=== PATIENT | female | born 1995 | race Caucasian/White ===

== ENCOUNTER → 2017-05-01 | Outpatient (CLI) | payer BC, OTHER ==
--- NOTE | 2017-05-01 15:16 | XR ---
EXAMINATION TYPE: XR chest 2V DATE OF EXAM: 05/01/2017 COMPARISON: 12/01/2012 TECHNIQUE: PA and lateral views submitted. HISTORY: Cough FINDINGS: The lungs are clear and there is no pneumothorax, pleural effusion, or focal pneumonia. IMPRESSION: 1. No acute process.
== END | disposition home or self-care (01) ==
LOC: RADXRMAIN 11:42
PROVIDERS: ATTEND Otolaryngology
DX: R05 Cough (principal)
CPT/HCPCS: 71020

== ENCOUNTER → 2017-05-08 | Outpatient (CLI) | payer BC, OTHER | LOC: CPPFTMAIN 13:32 | PROVIDERS: ATTEND Otolaryngology | DX: R05 Cough (principal); J45.909 Unspecified asthma, uncomplicated | CPT/HCPCS: 94060; 94726; 94729 ==

== ENCOUNTER → 2017-05-11 | Outpatient (CLI) | payer BC, OTHER | END | disposition home or self-care (01) | LOC: PTMAIN 08:57 | PROVIDERS: ATTEND Otolaryngology | DX: J45.909 Unspecified asthma, uncomplicated (principal); R05 Cough ==

== ENCOUNTER → 2017-07-09 | Outpatient (CLI) | payer BC, OTHER | END | disposition home or self-care (01) | LOC: LABWHC1 14:30 | PROVIDERS: ATTEND Internal Medicine Endocrinology, Diabetes & Metabolism | DX: E03.9 Hypothyroidism, unspecified (principal) | CPT/HCPCS: 36415; 84439; 84443 ==

== ENCOUNTER → 2018-01-29 | Outpatient (CLI) | payer BC, OTHER ==
[2018-01-29 15:20] LABS: T4, Free (Free Thyroxine) 0.96 ng/dL (0.78-2.19)
== END | disposition home or self-care (01) ==
LOC: LABWHC1 13:50
PROVIDERS: ATTEND Internal Medicine Endocrinology, Diabetes & Metabolism
DX: E03.8 Other specified hypothyroidism (principal)
CPT/HCPCS: 36415; 84439; 84443

== ENCOUNTER 2018-02-18 18:21 | Emergency (ER) | payer BC, OTHER ==
[2018-02-18 18:26] VITALS: BP 138/88; PULSE 69; RESP 18; TEMP 98.2
[2018-02-18] MEDS ORDERED: DOXYCYCLINE 50 MG CAP PO STA (19:12)
--- NOTE | 2018-02-18 19:31 | ED ---
General Adult HPI - General Chief complaint: Skin/Abscess/Foreign Body Stated complaint: BITE ON RT ARM and headache Time Seen by Provider: 02/18/18 18:29 Source: patient, RN notes reviewed Mode of arrival: ambulatory Limitations: no limitations - History of Present Illness Initial comments: This is a 23-year-old female with past medical history of asthma who presents today for a rash to right upper arm 4 days. She states 4 days ago she was in the [place] around the [place] area when she got home she also looked like mosquito bite, that was itching. Denies any other symptoms. 3 days later she noticed increasing redness around the bite on her right upper arm, and presented to an urgent care. There she was examined and they stated that they mosquito bite she was given hydrocortisone cream for itching. She was told to come to the ER if she has any new symptoms. Today she presents for a rash unchanged from the day before but this morning she woke up with a mild headache. She denies the same symptoms including seeing a tick on her arm , traveling to the [facility] for the [facility], photophobia, fever or chills, nuchal rigidity, warmth or drainage from the lesion, previous MRSA infection, arthralgias, dysarthria, aphasia, muscle weakness, gait ataxia, or confusion. Her presentation patient with headache and rash to the right upper arm. Patient denies any recent fever, chills, shortness of breath, chest pain, back pain, abdominal pain, nausea or vomiting, numbness or tingling, dysuria or hematuria, constipation or diarrhea, or visual changes, or any other complaints. Upon presentation to the emergency Department patient was afebrile and vital signs within normal limits. - Related Data Home Medications Medication Instructions Recorded Confirmed Levothyroxine Sodium [Synthroid] 175 mcg PO DAILY 10/22/14 02/18/18 Duc-Whlo-Dkfvm Acid 1 tab PO DAILY 01/22/16 02/18/18 [-U Capsule (formulary)] FLUoxetine HCL [PROzac] 20 mg PO DAILY 02/18/18 02/18/18 buPROPion XL [Wellbutrin Xl] 150 mg PO DAILY 02/18/18 02/18/18 Allergies Allergy/AdvReac Type Severity Reaction Status Date / Time No Known Allergies Allergy Verified 02/18/18 18:30 Review of Systems ROS Statement: Those systems with pertinent positive or pertinent negative responses have been documented in the HPI. ROS Other: All systems not noted in ROS Statement are negative. Constitutional: Denies: fever, chills, weakness, night sweats Eyes: Denies: vision change Respiratory: Denies: dyspnea Cardiovascular: Denies: chest pain Gastrointestinal: Denies: abdominal pain, nausea, vomiting, diarrhea, constipation Genitourinary: Denies: urgency, dysuria Skin: Reports: as per HPI, rash, pruritus Neurological: Reports: as per HPI, headache. Denies: weakness, numbness, paresthesias, confusion Past Medical History Past Medical History: Asthma, Thyroid Disorder Additional Past Medical History / Comment(s): Obstetric history: she has had 2 spontaneous abortions. This is her third and she has had care with Dr Galeano since 8 weeks. A+, abs neg, Rub Imm, RPR NR, Hep B neg, GBS neg. History of Any Multi-Drug Resistant Organisms: None Reported Past Surgical History: Adenoidectomy, Tonsillectomy Past Anesthesia/Blood Transfusion Reactions: No Reported Reaction Past Psychological History: Anxiety, Depression Smoking Status: Never smoker Past Alcohol Use History: None Reported Past Drug Use History: None Reported - Past Family History Mother Family Medical History: Asthma, Thyroid Disorder General Exam - General Exam Comments Initial Comments: General: The patient is awake and alert, in no distress, and does not appear acutely ill. Eye: Pupils are equal, round and reactive to light, extra-ocular movements are intact. No nystagmus. There is normal conjunctiva bilaterally. No signs of icterus. Skin: Skin is warm and dry. There is a 1 cm raised erythematous raised lesion, with blanchable 8cm circular erythematous area surrounding the lesion, with a slight clearing to the lower portion but it is not circumferential. there are area of excoriation most likely due to pruritus. No active drainage from the raised lesion or warmth. Where the skin is touch it becomes erythematous upon physical examination. Ears, nose, mouth and throat: There are moist mucous membranes and no oral lesions. Neck: The neck is supple, there is no tenderness or JVD. No evidence of nuchal rigidty, (-) Brudzinski's (-) Kernig. No palpable lymphadenopathy. Cardiovascular: There is a regular rate and rhythm. No murmur, rub or gallop is appreciated. Respiratory: Lungs are clear to auscultation, respirations are non-labored, breath sounds are equal. No wheezes, stridor, rales, or rhonchi. Musculoskeletal: Normal ROM, no tenderness. Strength 5/5. Sensation intact. Pulses equal bilaterally 2+. Neurological: A&O x 3. CN II-XII intact, patient able to heel, toe walk and accordingly manner without gait abnormalities. Negative Romberg. No pronator drift. Coordination intact to [id number] [id number]. Able to perform coordinated rapid alternating movements. Speech is normal. +5 out of 5 muscle strength of the upper extremities and lower extremities equal bilaterally. No signs hemineglect or inattention. Patient memory intact to immediate, intermediate and longterm. Able to identify a pen. No signs dyspraxia. Graphesthesia. +2 deep tendon reflexes of the patellar, Achilles , brachioradialis and triceps. Sensation intact of the upper extremity and lower extremities equal bilaterally. She is able to identify extinction. Psychiatric: Cooperative, appropriate mood & affect, normal judgment. . Limitations: no limitations Course Vital Signs 02/18/18 18:21 Temperature 98.2 F Pulse Rate 69 Respiratory 18 Rate Blood Pressure 138/88 O2 Sat by Pulse 99 Oximetry Medical Decision Making - Medical Decision Making This is a 23-year-old female with past medical history of asthma who presents today for a rash to right upper arm 4 days. She states 4 days ago she was in the [place] around the [facility] when she got home she also looked like mosquito bite, that was itching. Denies any other symptoms. 3 days later she noticed increasing redness around the bite on her right upper arm, and presented to an urgent care. There she was examined and they stated that they mosquito bite she was given hydrocortisone cream for itching. She was told to come to the ER if she has any new symptoms. Today she presents for a rash unchanged from the day before but this morning she woke up with a mild headache which she had looked up Lyme disease symptoms and wanted to be sure. She denies seeing a tick on her arm , traveling to the [facility] for the [facility], photophobia, fever or chills, nuchal rigidity, warmth or drainage from the lesion, previous MRSA infection, arthralgias, dysarthria, aphasia, muscle weakness, gait ataxia, or confusion. Upon presentation to the emergency department she is afebrile vital signs within normal limits . A physical examination reveals skin is warm and dry. There is a 1 cm raised erythematous raised lesion, with blanchable 8cm circular erythematous area surrounding the lesion, with a slight clearing to the lower portion but it is not circumferential. there are area of excoriation most likely due to pruritus. No active drainage from the raised lesion or warmth. Where the skin is touch it becomes erythematous upon physical examination. Thorough neurological exam unremarkable. Upreg (-). Patient was given 200 mg doxycycline for Lyme disease prophylaxis instead of Lyme disease treatment due to patient never seeing an engorged or live tick on her arm and no being in an endemic area the likelihood of trasmissino is unlikely. However, pt was educated on the signs and symptoms of Lyme disease and encourged to undergo further testing with her PCP if symptoms continue. In addition to the abx she was given 500mg Tylenol for pain management which pt states helped a lot, she stated her headache went away and upon a third evaluation she was laughing in her room conversing with her boyfriend. Pt was seen by Dr Jaramillo in person and examined and the case was discussed in detail. Pt is follow-up with PCP in 1-2 days and to return to the emergency department if symptoms worsen, persist or change. - Lab Data Lab Results 02/18/18 Range/Units 19:26 Urine HCG, Qual Not Detected (Not Detectd) Disposition Clinical Impression: Bug bite of face without infection Disposition: HOME SELF-CARE Condition: Good Instructions: Lyme Disease (ED) Additional Instructions: Please follow-up with family doctor in the next 2 days of symptoms have not improved. Please return to emergency room if the symptoms increase or worsen or for any other concerns. Is patient prescribed a controlled substance at d/c from ED?: No Referrals: Perez Cason DO [Primary Care Provider] - 1-2 days Time of Disposition: 20:08
[2018-02-18] MEDS ORDERED: ACETAMINOPHEN TAB 500 MG TAB PO STA (19:32)
== END 2018-02-18 20:15 | disposition home or self-care (01) ==
LOC: EC 18:21
DX: S00.86XD Insect bite (nonvenomous) of other part of head, subsequent encounter (principal); S40.861D Insect bite (nonvenomous) of right upper arm, subsequent encounter; R51 Headache; E07.9 Disorder of thyroid, unspecified; F41.9 Anxiety disorder, unspecified; F32.9 Major depressive disorder, single episode, unspecified; Z79.899 Other long term (current) drug therapy; W57.XXXD Bitten or stung by nonvenomous insect and other nonvenomous arthropods, subsequent encounter
CPT/HCPCS: 81025; 99284

== ENCOUNTER 2018-05-12 12:08 | Emergency (ER) | payer BC, OTHER ==
[2018-05-12 12:14] VITALS: BP 141/90; PULSE 80; RESP 18; TEMP 98.3
[2018-05-12] MEDS ORDERED: SODIUM CHLORIDE 0.9% 1,000 ML IV STA (12:15)
[2018-05-12 12:50] LABS: Appearance,Urine Clear (Clear); Bilirubin,Urine Negative (Negative); Blood,Urine Negative (Negative); Color,Urine Yellow; Glucose,Urine (UA) Negative (Negative); Ketones,Urine Negative (Negative); Leukocyte Esterase,Urine Trace (Negative); Mucus,Urine Rare /hpf; Nitrite,Urine Negative (Negative); Protein,Urine Negative (Negative); RBC,Urine 3 /hpf (0-5); Specific Gravity,Urine 1.018 (1.001-1.035); Squamous Epithelial Cell,Urine 2 /hpf (0-4); Urobilinogen,Urine <2.0 mg/dL (<2.0); WBC,Urine 1 /hpf (0-5)
[2018-05-12] MEDS ORDERED: ACETAMINOPHEN IV (For NPO) 1,000 MG in EMPTY BAG 1 BAG IVPB ONE (13:33)
[2018-05-12] MEDS ORDERED: KETOROLAC 30 MG/ML 1 ML VIAL IVP STA (13:34)
[2018-05-12] MEDS ORDERED: METOCLOPRAMIDE 5 MG/ML 2 ML VIAL IVP STA (13:35)
--- NOTE | 2018-05-12 15:05 | ED ---
General Adult HPI - General Chief complaint: Headache Stated complaint: Migraine/ENT Source: patient, family Mode of arrival: ambulatory Limitations: no limitations - History of Present Illness Initial comments: Dictation was produced using [employer] dictation software. please excuse any grammatical, word or spelling errors. Chief Complaint: 23-year-old female with a CV past medical history presents with headache. History of Present Illness: Patient presents with headache. She recently completed course of antibiotics for sinusitis. She's been having headache for several days now. Patient denies any neurologic deficit. She states that her headache is throbbing in nature. Denies any changes in vision. Patient has any constitutional symptoms. Patient states she's had headaches similar to this in the past however not very frequent. Denies . The ROS documented in this emergency department record has been reviewed and confirmed by me. Those systems with pertinent positive or negative responses have been documented in the HPI. All other systems are other negative and/or noncontributory. - Related Data Home Medications Medication Instructions Recorded Confirmed Levothyroxine Sodium [Synthroid] 175 mcg PO DAILY 10/22/14 02/18/18 Aeg-Ynpc-Nygts Acid 1 tab PO DAILY 01/22/16 02/18/18 [-U Capsule (formulary)] FLUoxetine HCL [PROzac] 20 mg PO DAILY 02/18/18 02/18/18 buPROPion XL [Wellbutrin Xl] 150 mg PO DAILY 02/18/18 02/18/18 Previous Rx's Medication Instructions Recorded Naproxen [Naprosyn] 500 mg PO Q12HR PRN #20 tab 05/12/18 Oxymetazoline 0.05% Nasl [place] 2 spray EA NOSTRIL BID 3 Days #1 05/12/18 [Afrin 0.05% Nasal [place]] bottle Allergies Allergy/AdvReac Type Severity Reaction Status Date / Time No Known Allergies Allergy Verified 05/12/18 12:14 Review of Systems ROS Statement: Those systems with pertinent positive or pertinent negative responses have been documented in the HPI. ROS Other: All systems not noted in ROS Statement are negative. Past Medical History Past Medical History: Asthma, Thyroid Disorder Additional Past Medical History / Comment(s): Obstetric history: she has had 2 spontaneous abortions. This is her third and she has had care with Dr Galeano since 8 weeks. A+, abs neg, Rub Imm, RPR NR, Hep B neg, GBS neg. History of Any Multi-Drug Resistant Organisms: None Reported Past Surgical History: Adenoidectomy, Tonsillectomy Past Anesthesia/Blood Transfusion Reactions: No Reported Reaction Past Psychological History: Anxiety, Depression Smoking Status: Never smoker Past Alcohol Use History: None Reported Past Drug Use History: None Reported - Past Family History Mother Family Medical History: Asthma, Thyroid Disorder General Exam - General Exam Comments Initial Comments: PHYSICAL EXAM: General Impression: Alert and oriented x3, not in acute distress HEENT: Normocephalic atraumatic, extra-ocular movements intact, pupils equal and reactive to light bilaterally, mucous membranes moist. Cardiovascular: Heart regular rate and rhythm, S1&S2 audible, no murmurs, rubs or gallops Chest: Lungs clear to auscultation bilaterally, no rhonchi, no wheeze, no rales Abdomen: Bowel sounds present, abdomen soft, non-tender, non-distended, no organomegaly Musculoskeletal: Pulses present and equal in all extremities, no peripheral edema Motor: Power 5/5 bilaterally, no focal deficits noted Neurological: CN II-XII grossly intact, no focal motor or sensory deficits noted Skin: Intact with no visualized rashes Psych: Normal affect and mood Limitations: no limitations Course Vital Signs 05/12/18 12:11 Temperature 98.3 F Pulse Rate 80 Respiratory 18 Rate Blood Pressure 141/90 O2 Sat by Pulse 98 Oximetry Medical Decision Making - Medical Decision Making ED course: 23-year-old female with chief complaint of headache. Vital signs upon arrival are within acceptable limits. She given headache cocktail. Urinalysis is obtained showing no acute process. Beta hCG is negative. Patient reevaluated after headache cocktail with improvement of symptoms. Patient prescribed Afrin spray and Naprosyn for headaches. She is told to follow-up with a primary care physician upon discharge for further management of symptoms. Patient understandable agreeable to plan. - Lab Data Lab Results 05/12/18 05/12/18 Range/Units 12:40 12:40 Urine Color Yellow Urine Appearance Clear (Clear) Urine pH 7.0 (5.0-8.0) Ur Specific [place] 1.018 (1.001-1.035) Urine Protein Negative (Negative) Urine Glucose (UA) Negative (Negative) Urine Ketones Negative (Negative) Urine Blood Negative (Negative) Urine Nitrite Negative (Negative) Urine Bilirubin Negative (Negative) Urine Urobilinogen <2.0 (<2.0) mg/dL Ur Leukocyte Esterase Trace H (Negative) Urine RBC 3 (0-5) /hpf Urine WBC 1 (0-5) /hpf Ur Squamous Epith Cells 2 (0-4) /hpf Urine Mucus Rare H (None) /hpf Urine HCG, Qual Not Detected (Not Detectd) Disposition Clinical Impression: Headache Disposition: HOME SELF-CARE Condition: Good Instructions: Acute Headache (ED) Prescriptions: Naproxen [Naprosyn] 500 mg PO Q12HR PRN #20 tab PRN Reason: Pain Oxymetazoline 0.05% Nasl [place] [Afrin 0.05% Nasal [place]] 2 spray EA NOSTRIL BID 3 Days #1 bottle Is patient prescribed a controlled substance at d/c from ED?: No Referrals: Perez Cason DO [Primary Care Provider] - 1-2 days Time of Disposition: 15:04
== END 2018-05-12 15:18 | disposition home or self-care (01) ==
LOC: EC 12:08
DX: R51 Headache (principal); E07.9 Disorder of thyroid, unspecified; F32.9 Major depressive disorder, single episode, unspecified; F41.9 Anxiety disorder, unspecified; Z79.899 Other long term (current) drug therapy
CPT/HCPCS: 81001; 81025; 87086; 99284; 96374; 96375 ×2; 96361; J2765; J1885; J0131

== ENCOUNTER 2018-06-21 23:24 | Emergency (ER) | payer OTHER ==
--- NOTE | 2018-06-22 00:03 | ED ---
Psych HPI - General Chief Complaint: Psychiatric Symptoms Stated Complaint: suicidal Time Seen by Provider: 06/21/18 23:36 Source: patient Mode of arrival: ambulatory - History of Present Illness Initial Comments: This patient is a 23-year-old woman with history of depression, who presents to be evaluated for suicidal ideation. The patient states that for the past 4 days or so she has been feeling more depressed than usual and she saw her primary physician. Patient was started on Zoloft, and has been taking this but states that her mood has worsened over the past approximately 2 days and she has been having suicidal ideation. She denies having any associated hallucinations. MD Complaint: suicidal ideation, feels depressed Onset/Timin -: days(s) Associated Psychiatric Symptoms: depression, suicidal ideation History of same: No Quality: changing over time Improves With: none Worsens With: none Context: new medication(s) Associated Symptoms: denies other symptoms - Related Data Home Medications Medication Instructions Recorded Confirmed Levothyroxine Sodium [Synthroid] 137 mcg PO DAILY 10/22/14 02/18/18 FLUoxetine HCL [PROzac] 40 mg PO DAILY 02/18/18 02/18/18 Previous Rx's Medication Instructions Recorded Naproxen [Naprosyn] 500 mg PO Q12HR PRN #20 tab 05/12/18 Oxymetazoline 0.05% Nasl [place] 2 spray EA NOSTRIL BID 3 Days #1 05/12/18 [Afrin 0.05% Nasal [place]] bottle Allergies Allergy/AdvReac Type Severity Reaction Status Date / Time No Known Allergies Allergy Verified 05/12/18 12:14 Review of Systems ROS Statement: Those systems with pertinent positive or pertinent negative responses have been documented in the HPI. ROS Other: All systems not noted in ROS Statement are negative. Constitutional: Denies: fever, chills Respiratory: Denies: cough, dyspnea Cardiovascular: Denies: chest pain Gastrointestinal: Denies: abdominal pain, vomiting Neurological: Denies: headache, weakness, numbness Psychiatric: Reports: anxiety, depression, suicidal thoughts. Denies: auditory hallucinations, visual hallucinations, homicidal thoughts Past Medical History Past Medical History: Asthma, Thyroid Disorder Additional Past Medical History / Comment(s): Obstetric history: she has had 2 spontaneous abortions. This is her third and she has had care with Dr Galeano since 8 weeks. A+, abs neg, Rub Imm, RPR NR, Hep B neg, GBS neg. History of Any Multi-Drug Resistant Organisms: None Reported Past Surgical History: Adenoidectomy, Tonsillectomy Past Anesthesia/Blood Transfusion Reactions: No Reported Reaction Past Psychological History: Anxiety, Depression Smoking Status: Never smoker Past Alcohol Use History: None Reported Past Drug Use History: None Reported - Past Family History Mother Family Medical History: Asthma, Thyroid Disorder General Exam Limitations: no limitations General appearance: alert, in no apparent distress Head exam: Present: normocephalic ENT exam: Present: normal oropharynx Respiratory exam: Present: normal lung sounds bilaterally. Absent: respiratory distress, wheezes, rales, rhonchi, stridor Cardiovascular Exam: Present: regular rate, normal rhythm, normal heart sounds. Absent: systolic murmur, diastolic murmur, rubs, gallop GI/Abdominal exam: Present: soft. Absent: distended, tenderness, guarding, rebound, organomegaly, mass Extremities exam: Present: normal inspection, normal capillary refill Neurological exam: Present: alert Psychiatric exam: Present: depressed, suicidal ideation. Absent: agitated, anxious, flat affect, manic, homicidal ideation Skin exam: Present: warm, dry, intact, normal color. Absent: rash Course Vital Signs 06/21/18 23:29 Temperature 98.0 F Pulse Rate 67 Respiratory 20 Rate Blood Pressure 119/75 O2 Sat by Pulse 100 Oximetry Medical Decision Making - Medical Decision Making On reevaluation, patient is feeling somewhat better. A behavioral health has seen the patient and has established follow-up plan for [facility]. The patient's partner is supportive and they believe that she'll be safe going home, she does contract for safety. They will return if the patient's mood worsens or if any new symptoms develop. - Lab Data Lab Results 06/22/18 06/22/18 Range/Units 00:00 00:00 Urine Color Dark Yellow Urine Appearance Cloudy H (Clear) Urine pH 5.5 (5.0-8.0) Ur Specific [place] 1.030 (1.001-1.035) Urine Protein Trace H (Negative) Urine Glucose (UA) Negative (Negative) Urine Ketones Negative (Negative) Urine Blood Negative (Negative) Urine Nitrite Negative (Negative) Urine Bilirubin Negative (Negative) Urine Urobilinogen <2.0 (<2.0) mg/dL Ur Leukocyte Esterase Moderate H (Negative) Urine RBC 3 (0-5) /hpf Urine WBC 5 (0-5) /hpf Ur Squamous Epith Cells 14 H (0-4) /hpf Urine Bacteria Rare H (None) /hpf Urine Mucus Few H (None) /hpf Urine HCG, Qual Not Detected (Not Detectd) Urine Opiates Screen Not Detected (NotDetected) Ur Oxycodone Screen Not Detected (NotDetected) Urine Methadone Screen Not Detected (NotDetected) Ur Propoxyphene Screen Not Detected (NotDetected) Ur Barbiturates Screen Not Detected (NotDetected) U Tricyclic Antidepress Not Detected (NotDetected) Ur Phencyclidine Scrn Not Detected (NotDetected) Ur Amphetamines Screen Not Detected (NotDetected) U Methamphetamines Scrn Not Detected (NotDetected) U Benzodiazepines Scrn Not Detected (NotDetected) Urine Cocaine Screen Not Detected (NotDetected) U Marijuana (THC) Screen Not Detected (NotDetected) Disposition Clinical Impression: Mood disorder Disposition: HOME SELF-CARE Condition: Good Instructions: Mood Disorders (ED) Is patient prescribed a controlled substance at d/c from ED?: No Referrals: Perez Cason DO [Primary Care Provider] - 1-2 days
[2018-06-22 00:31] LABS: Appearance,Urine Cloudy (Clear); Bacteria,Urine Rare /hpf; Bilirubin,Urine Negative (Negative); Blood,Urine Negative (Negative); Color,Urine Dark Yellow; Glucose,Urine (UA) Negative (Negative); Ketones,Urine Negative (Negative); Leukocyte Esterase,Urine Moderate (Negative); Mucus,Urine Few /hpf; Nitrite,Urine Negative (Negative); PH, Urine 5.5 (5.0-8.0); Protein,Urine Trace (Negative); RBC,Urine 3 /hpf (0-5); Squamous Epithelial Cell,Urine 14 /hpf (0-4); Urobilinogen,Urine <2.0 mg/dL (<2.0); WBC,Urine 5 /hpf (0-5)
[2018-06-22 00:38] LABS: Amphetamine Screen,Urine Not Detected (NotDetected); Barbiturate Screen,Urine Not Detected (NotDetected); Benzodiazepines Screen,Urine Not Detected (NotDetected); Cocaine Screen,Urine Not Detected (NotDetected); Methadone Screen, Urine Not Detected (NotDetected); Opiate Screen,Urine Not Detected (NotDetected); Oxycodone Screen, Urine Not Detected (NotDetected); Phencyclidine Screen,Urine Not Detected (NotDetected); Tricyclic Antidepressant,Urine Not Detected (NotDetected); Urn Cannabinoid Scrn Not Detected (NotDetected)
[2018-06-22 02:23] VITALS: BP 117/75; PULSE 59; RESP 16; TEMP 97.5
--- NOTE | 2018-06-22 02:27 | CDI ---
Documentation Clarification OP Dear Reginaldo MARQUEZ MD Please do addendum to ED report for clinical impression. Thank you, Marixa [employer] Operator If you have any question, Please contact bookkeeping manager at [phone] [facility]
== END 2018-06-22 02:28 | disposition home or self-care (01) ==
LOC: EC 23:24
DX: F39 Unspecified mood [affective] disorder (principal); F41.9 Anxiety disorder, unspecified; F32.9 Major depressive disorder, single episode, unspecified; Z79.899 Other long term (current) drug therapy
CPT/HCPCS: 80306; 81001; 81025; 82075; 99284

== ENCOUNTER → 2018-06-26 | Outpatient (CLI) | payer OTHER ==
--- NOTE | 2018-06-26 14:05 | US ---
EXAMINATION TYPE: US pelvic complete DATE OF EXAM: 06/26/2018 COMPARISON: US 2014 CLINICAL HISTORY: [id number] Unspesified ovarian cyst of left side. History of ovarian cysts, 3, para 1, miscarriage 2 TECHNIQUE: . Transabdominal sonographic images of the pelvis were acquired. Date of LMP: 2 weeks ago EXAM MEASUREMENTS: Uterus: 8.2 x 4.4 x 5.2 cm Endometrial Stripe: 0.8 cm Right Ovary: 2.7 x 1.9 x 1.8 cm Left Ovary: 2.6 x 2.1 x 2.7 cm 1. Uterus: anteverted, wnl 2. Endometrium: wnl 3. Right Ovary: wnl 4. Left Ovary: wnl 5. Bilateral Adnexa: wnl 6. Posterior cul-de-sac: wnl IMPRESSION: No distinct abnormality appreciated.
== END | disposition home or self-care (01) ==
LOC: RADUSWWP 13:32
PROVIDERS: ATTEND Family Medicine
DX: N83.202 Unspecified ovarian cyst, left side (principal); N94.12 Deep dyspareunia
CPT/HCPCS: 76856

== ENCOUNTER → 2018-07-15 | Outpatient (CLI) | payer BC, OTHER | END | disposition home or self-care (01) | LOC: LABWHC1 14:23 | PROVIDERS: ATTEND Internal Medicine Endocrinology, Diabetes & Metabolism | DX: E03.8 Other specified hypothyroidism (principal) | CPT/HCPCS: 36415; 84443 ==

== ENCOUNTER → 2018-08-05 | Outpatient (CLI) | payer BC, OTHER ==
--- NOTE | 2018-08-05 15:43 | US ---
EXAMINATION TYPE: Ultrasound OB <= 14 week fetus DATE OF EXAM: 08/05/2018 COMPARISON: Ultrasound pelvis 06/26/2018 CLINICAL HISTORY: 23-year-old female [id number] Confirm Dates. EXAM PERFORMED: Transabdominal (TA) FINDINGS: EXAM MEASUREMENTS: GESTATIONAL AGE / DATING Physician Established: Not yet established Dates by LMP: (7 weeks/6 days) EDC: 03/18/2019 Dates by First Scan: No previous this is first scan Dates by Current Scan for: (8 weeks/3 days) EDC: 03/14/2019 MATERNAL ANATOMY Uterus: 10.0 x 6.5 x 7.4 cm Right Ovary: 1.8 x 1.3 x 1.0 cm Left Ovary: 2.7 x 2.8 x 2.0 cm Post CDS / Adnexa: wnl Presence of free fluid: No Presence of corpus luteal cyst: No Presence of subchorionic bleed: No GESTATION / SURVEY CRL: 1.9 cm (8 weeks/3 days) Yolk Sac (normal less than 6mm): 3 mm Heart Rate: 152 bpm Rhythm: Normal IUP: Viable IUP Date of LMP: 06/11/2018 Beta HcG (if available): Not available at this time Retirement Plan Counselor notes: Viable IUP with an TED of 03/14/2019 by this exam. IMPRESSION: 1. Single live intrauterine with estimated gestational age of 7 weeks 6 days by LMP. Curren t ultrasound biometry is larger by 4 days (8 weeks 3 days). 2. Complete survey recommended at 18-20 weeks.
== END ==
LOC: RADUSWWP 14:53
PROVIDERS: ATTEND Obstetrics & Gynecology
DX: Z36.89 Encounter for other specified antenatal screening (principal); Z3A.08 8 weeks gestation of pregnancy
CPT/HCPCS: 76801

== ENCOUNTER 2018-08-06 19:37 | Emergency (ER) | payer BC, OTHER ==
[2018-08-06] MEDS ORDERED: METOCLOPRAMIDE 5 MG/ML 2 ML VIAL IVP STA (20:08)
[2018-08-06] MEDS ORDERED: SODIUM CHLORIDE 0.9% 1,000 ML IV STA ×2 (20:08)
[2018-08-06] MEDS ORDERED: diphenhydrAMINE 50 MG/ML 1 ML VIAL IVP STA (20:08)
--- NOTE | 2018-08-06 20:09 | ED ---
Nausea/Vomiting/Diarrhea HPI - General Chief complaint: Nausea/Vomiting/Diarrhea Stated complaint: vomiting/dizzy 8 wks preg Time Seen by Provider: 08/06/18 20:01 Source: patient, RN notes reviewed, old records reviewed Mode of arrival: wheelchair Limitations: no limitations - History of Present Illness Initial comments: Patient is a 23-year-old female, presents emergency department today with chief complaint of nausea and vomiting. Her fianc has similar complaints. This started after they ate [place] food at the mall yesterday. Patient reports that she is 8 weeks . She denies any vaginal bleeding or discharge. She denies any significant abdominal pain. Patient reports that due to the vomiting she felt somewhat dizzy and lightheaded. - Related Data Home Medications Medication Instructions Recorded Confirmed Levothyroxine Sodium [Synthroid] 150 mcg PO DAILY 08/06/18 08/06/18 Ondansetron [Zofran] 4 mg PO Q12HR PRN 08/06/18 08/06/18 Hvo-Bihw-Cfujs Acid 1 cap PO DAILY 08/06/18 08/06/18 [-U Capsule (formulary)] Previous Rx's Medication Instructions Recorded Cephalexin [Keflex] 500 mg PO Q8HR #21 cap 08/06/18 Metoclopramide [Reglan] 10 mg PO ACHS #12 tab 08/06/18 Allergies Allergy/AdvReac Type Severity Reaction Status Date / Time No Known Allergies Allergy Verified 08/06/18 20:20 Review of Systems ROS Statement: Those systems with pertinent positive or pertinent negative responses have been documented in the HPI. ROS Other: All systems not noted in ROS Statement are negative. Past Medical History Past Medical History: Asthma, Thyroid Disorder Additional Past Medical History / Comment(s): Obstetric history: she has had 2 spontaneous abortions. This is her third and she has had care with Dr Galeano since 8 weeks. A+, abs neg, Rub Imm, RPR NR, Hep B neg, GBS neg, History of Any Multi-Drug Resistant Organisms: None Reported Past Surgical History: Adenoidectomy, Tonsillectomy Past Anesthesia/Blood Transfusion Reactions: No Reported Reaction Past Psychological History: Anxiety, Depression Smoking Status: Never smoker Past Alcohol Use History: None Reported Past Drug Use History: None Reported - Past Family History Mother Family Medical History: Asthma, Thyroid Disorder General Exam - General Exam Comments Initial Comments: This is a 23-year-old female. Alert and oriented. Patient appears in no acute distress. General: Well appearing, well nourished, in no distress. Oriented x 3, normal mood and affect . Ambulating without difficulty. Skin: Good turgor, no rash, unusual bruising or prominent lesions Hair: Normal texture and distribution. HEENT: Head: Normocephalic, atraumatic, no visible or palpable masses, depressions, or scaring. Eyes: Visual acuity intact, conjunctiva clear, sclera non-icteric, EOM intact, PERRL. Ears: EACs clear, TMs translucent & cone of light visualized. hearing intact. Nose: No external lesions, mucosa non-inflamed, septum and turbinates normal Mouth: Mucous membranes moist, no mucosal lesions. Teeth/Gums: No obvious caries or periodontal disease. No gingival inflammation or significant resorption. Pharynx: Mucosa non-inflamed, no tonsillar hypertrophy or exudate Neck: Supple, without lesions, bruits, or adenopathy, thyroid non-enlarged and non-tender Heart: No cardiomegaly or thrills; regular rate and rhythm, no murmur or gallop Lungs: Clear to auscultation and percussion Abdomen: Bowel sounds normal, no tenderness, organomegaly, masses, or hernia Back: Spine normal without deformity or tenderness, no CVA tenderness Rectal: Normal sphincter tone, no hemorrhoids or masses palpable Extremities: No amputations or deformities, cyanosis, edema or varicosities, peripheral pulses intact Musculoskeletal: Normal gait and station. No misalignment, asymmetry, crepitation, defects, tenderness, masses, effusions, decreased range of motion, instability, atrophy or abnormal strength or tone in the head, neck, spine, ribs , pelvis or extremities. Neurologic: CN 2-12 normal. Sensation to pain, touch, and proprioception normal. DTRs normal in upper and lower extremities. No pathologic reflexes. Psychiatric: Oriented X3, intact recent and remote memory, judgment and insight , normal mood and affect. Limitations: no limitations General appearance: alert, in no apparent distress Head exam: Present: atraumatic, normocephalic, normal inspection Eye exam: Present: normal appearance, PERRL, EOMI. Absent: scleral icterus, conjunctival injection, periorbital swelling ENT exam: Present: normal exam, mucous membranes moist Neck exam: Present: normal inspection. Absent: tenderness, meningismus, lymphadenopathy Respiratory exam: Present: normal lung sounds bilaterally. Absent: respiratory distress, wheezes, rales, rhonchi, stridor Cardiovascular Exam: Present: regular rate, normal rhythm, normal heart sounds. Absent: systolic murmur, diastolic murmur, rubs, gallop, clicks GI/Abdominal exam: Present: soft, normal bowel sounds. Absent: distended, tenderness, guarding, rebound, rigid Extremities exam: Present: normal inspection, full ROM, normal capillary refill. Absent: tenderness, pedal edema, joint swelling, calf tenderness Back exam: Present: normal inspection Neurological exam: Present: alert, oriented X3, CN II-XII intact Psychiatric exam: Present: normal affect, normal mood Skin exam: Present: warm, dry, intact, normal color. Absent: rash Course Vital Signs 08/06/18 19:50 Temperature 98.8 F Pulse Rate 105 H Respiratory 17 Rate Blood Pressure 98/64 O2 Sat by Pulse 99 Oximetry Medical Decision Making - Medical Decision Making is a 23-year-old female process returns today with nausea and vomiting times one day. She is currently 8 weeks . Ultrasound was obtained and shows viable IUP heart rate 1:30 beats were minute. She had no significant abdominal tenderness, denies any vaginal bleeding or discharge. This patient's labwork was reviewed and unremarkable. Patient was given 2 L bolus, IV Reglan and Benadryl. She does report symptomatic relief. We'll discharge the Patient with short course of Reglan. Discussed Patient she remains hydrated. Discussed return parameters. - Lab Data Result diagrams: 08/06/18 20:18 08/06/18 20:18 Lab Results 08/06/18 08/06/18 08/06/18 Range/Units 20:18 20:18 20:18 WBC 6.2 (3.8-10.6) k/uL RBC 4.86 (3.80-5.40) m/uL Hgb 13.7 (11.4-16.0) gm/dL Hct 40.6 (34.0-46.0) % MCV 83.5 (80.0-100.0) fL MCH 28.1 (25.0-35.0) pg MCHC 33.6 (31.0-37.0) g/dL RDW 13.3 (11.5-15.5) % Plt Count 179 (150-450) k/uL Neutrophils % 86 % Lymphocytes % 9 % Monocytes % 3 % Eosinophils % 1 % Basophils % 0 % Neutrophils # 5.3 (1.3-7.7) k/uL Lymphocytes # 0.6 L (1.0-4.8) k/uL Monocytes # 0.2 (0-1.0) k/uL Eosinophils # 0.1 (0-0.7) k/uL Basophils # 0.0 (0-0.2) k/uL Sodium 135 L (137-145) mmol/L Potassium 4.0 (3.5-5.1) mmol/L Chloride 105 (98-107) mmol/L Carbon Dioxide 22 (22-30) mmol/L Anion Gap 8 mmol/L BUN 10 (7-17) mg/dL Creatinine 0.55 (0.52-1.04) mg/dL Est GFR (CKD-EPI)AfAm >90 (>60 ml/min/1.73 sqM) Est GFR (CKD-EPI)NonAf >90 (>60 ml/min/1.73 sqM) Glucose 101 H (74-99) mg/dL Calcium 8.8 (8.4-10.2) mg/dL Total Bilirubin 1.6 H (0.2-1.3) mg/dL AST 22 (14-36) U/L ALT 17 (9-52) U/L Alkaline Phosphatase 53 (38-126) U/L Total Protein 6.7 (6.3-8.2) g/dL Albumin 3.7 (3.5-5.0) g/dL Amylase 39 (30-110) U/L Lipase 76 (23-300) U/L Urine Color Yellow Urine Appearance Cloudy H (Clear) Urine pH 5.5 (5.0-8.0) Ur Specific [place] 1.027 (1.001-1.035) Urine Protein Trace H (Negative) Urine Glucose (UA) Negative (Negative) Urine Ketones Negative (Negative) Urine Blood Negative (Negative) Urine Nitrite Negative (Negative) Urine Bilirubin Negative (Negative) Urine Urobilinogen <2.0 (<2.0) mg/dL Ur Leukocyte Esterase Large H (Negative) Urine RBC 1 (0-5) /hpf Urine WBC 6 H (0-5) /hpf Ur Squamous Epith Cells 6 H (0-4) /hpf Urine Mucus Few H (None) /hpf - Radiology Data Radiology results: report reviewed Single IUP. Heart rate is 138. kidney process noted. Disposition Clinical Impression: Nausea & vomiting, , UTI (urinary tract infection) Disposition: HOME SELF-CARE Condition: Good Instructions: Urinary Tract Infection in (ED) Additional Instructions: Patient advised to have close follow-up with primary care physician. Return to emergency department if any alarming signs or symptoms occur. Follow-up with your IMCU SPECIALIST. Take the medication as prescribed. Prescriptions: Cephalexin [Keflex] 500 mg PO Q8HR #21 cap Metoclopramide [Reglan] 10 mg PO ACHS #12 tab Is patient prescribed a controlled substance at d/c from ED?: No Referrals: Perez Cason DO [Primary Care Provider] - 1-2 days Time of Disposition: 23:21
[2018-08-06 20:34] LABS: Basophils % (A) 0 %; Eosinophils # (A) 0.1 k/uL (0-0.7); Eosinophils % (A) 1 %; HCT 40.6 % (34.0-46.0); HGB 13.7 gm/dL (11.4-16.0); Lymphocytes # (A) 0.6 k/uL (1.0-4.8); Lymphocytes % (A) 9 %; MCH 28.1 pg (25.0-35.0); MCHC 33.6 g/dL (31.0-37.0); MCV 83.5 fL (80.0-100.0); Monocytes # (A) 0.2 k/uL (0-1.0); Monocytes % (A) 3 %; Neutrophils # (A) 5.3 k/uL (1.3-7.7); Neutrophils % (A) 86 %; Platelet Count 179 k/uL (150-450); RBC 4.86 m/uL (3.80-5.40); RDW 13.3 % (11.5-15.5); WBC 6.2 k/uL (3.8-10.6)
[2018-08-06 20:39] LABS: Appearance,Urine Cloudy (Clear); Bilirubin,Urine Negative (Negative); Blood,Urine Negative (Negative); Color,Urine Yellow; Glucose,Urine (UA) Negative (Negative); Ketones,Urine Negative (Negative); Leukocyte Esterase,Urine Large (Negative); Mucus,Urine Few /hpf; Nitrite,Urine Negative (Negative); PH, Urine 5.5 (5.0-8.0); Protein,Urine Trace (Negative); RBC,Urine 1 /hpf (0-5); Specific Gravity,Urine 1.027 (1.001-1.035); Squamous Epithelial Cell,Urine 6 /hpf (0-4); Urobilinogen,Urine <2.0 mg/dL (<2.0)
[2018-08-06 20:42] LABS: ALT 17 U/L (9-52); AST 22 U/L (14-36); Albumin 3.7 g/dL (3.5-5.0); Alkaline Phosphatase 53 U/L (38-126); Amylase 39 U/L (30-110); Anion Gap 8 mmol/L; Blood Urea Nitrogen 10 mg/dL (7-17); Calcium 8.8 mg/dL (8.4-10.2); Carbon Dioxide 22 mmol/L (22-30); Chloride 105 mmol/L (98-107); Glucose 101 mg/dL (74-99); Lipase 76 U/L (23-300); Sodium 135 mmol/L (137-145); Total Bilirubin 1.6 mg/dL (0.2-1.3); Total Protein 6.7 g/dL (6.3-8.2)
--- NOTE | 2018-08-06 22:54 | US ---
EXAMINATION TYPE: US OB limited DATE OF EXAM: 08/06/2018 COMPARISON: NONE CLINICAL HISTORY: Pain. heart tones per ER Doctor. EXAM PERFORMED: GESTATIONAL AGE / DATING Physician Established: (8 weeks/4 days) EDC: 03/14/2019 No growth performed on today?s study per ordering physician SURVEY HEART RATE: 138 bpm RHYTHM: Normal IMPRESSION: Single living intrauterine fetus. The heart rate is 138. No complicating process seen.
[2018-08-06 23:41] VITALS: BP 109/57; PULSE 80; RESP 16; TEMP 97.8
== END 2018-08-06 23:41 | disposition home or self-care (01) ==
LOC: EC 19:37
DX: O23.41 Unspecified infection of urinary tract in pregnancy, first trimester (principal); O21.9 Vomiting of pregnancy, unspecified; O99.281 Endocrine, nutritional and metabolic diseases complicating pregnancy, first trimester; E07.9 Disorder of thyroid, unspecified; Z3A.08 8 weeks gestation of pregnancy; Z79.899 Other long term (current) drug therapy
CPT/HCPCS: 36415; 80053; 82150; 83690; 85025; 81001; 87086; 76815; 99284; 96374; 96375; 96361 ×3; J1200; J2765

== ENCOUNTER → 2018-08-26 | Outpatient (CLI) | payer BC, OTHER | END | disposition home or self-care (01) | LOC: LABWHC1 14:36 | PROVIDERS: ATTEND Internal Medicine Endocrinology, Diabetes & Metabolism | DX: E03.8 Other specified hypothyroidism (principal) | CPT/HCPCS: 36415; 84443 ==

== ENCOUNTER → 2018-10-02 | Outpatient (CLI) | payer BC, OTHER ==
[2018-10-03 13:51] LABS: Alpha Fetoprotein (M.O.M) 0.72; B-HCG (M.O.M.) 1.03; Gestational Age (days) 4; Human Chorionic Gonadotropin 23.5 IU/mL; Inhibin A (M.O.M.) 0.42; Maternal Age at EDD (Yrs) 22; Smoker No; Unconjugated Estriol (M.O.M.) 1.09
== END ==
LOC: LABWHC1 14:39
PROVIDERS: ATTEND Internal Medicine Endocrinology, Diabetes & Metabolism
DX: E03.8 Other specified hypothyroidism (principal)
CPT/HCPCS: 36415; 82105; 82677; 84443; 84702; 86336

== ENCOUNTER → 2018-11-04 | Outpatient (CLI) | payer BC, OTHER | LOC: LABWHC1 15:57 | PROVIDERS: ATTEND Internal Medicine Endocrinology, Diabetes & Metabolism | DX: E03.8 Other specified hypothyroidism (principal) | CPT/HCPCS: 36415; 84443 ==

== ENCOUNTER → 2018-11-26 | Outpatient (CLI) | payer BC, OTHER ==
[2018-11-26 15:05] LABS: HCT 35.2 % (34.0-46.0); HGB 11.4 gm/dL (11.4-16.0); MCH 27.8 pg (25.0-35.0); MCHC 32.3 g/dL (31.0-37.0); MCV 85.9 fL (80.0-100.0); Mean Platelet Volume 8.5; Platelet Count 193 k/uL (150-450); RDW 13.9 % (11.5-15.5); WBC 8.4 k/uL (3.8-10.6)
== END | disposition home or self-care (01) ==
LOC: LABWHC1 11:58
PROVIDERS: ATTEND Obstetrics & Gynecology
DX: Z34.82 Encounter for supervision of other normal pregnancy, second trimester (principal)
CPT/HCPCS: 36415; 82950; 85027

== ENCOUNTER → 2020-01-20 | Outpatient (CLI) | payer BC, OTHER ==
--- NOTE | 2020-01-20 12:51 | US ---
EXAMINATION TYPE: US pelvic complete DATE OF EXAM: 01/20/2020 COMPARISON: US 06/26/2018 CLINICAL HISTORY: N92.0 Excessive and frequent menstruation. Patient has copper IUD, bleeding TECHNIQUE: Transabdominal sonographic images of the pelvis were acquired. EXAM MEASUREMENTS: Uterus: 8.9 x 4.0 x 4.7 cm Endometrial Stripe: 0.7 cm Right Ovary: 3.3 x 2.6 x 1.9 cm Left Ovary: 3.3 x 1.5 x 1.5 cm 1. Uterus: Anteverted wnl 2. Endometrium: wnl, IUD visualized in good position 3. Right Ovary: wnl, follicles visualized 4. Left Ovary: wnl, follicles visualized 5. Bilateral Adnexa: wnl 6. Posterior cul-de-sac: wnl IMPRESSION: Centrally located intrauterine device appears appropriately placed. Physiologic follicula r change of the ovaries.
== END | disposition home or self-care (01) ==
LOC: RADUSWWP 12:13
PROVIDERS: ATTEND Family Medicine
DX: N92.0 Excessive and frequent menstruation with regular cycle (principal)
CPT/HCPCS: 76856

== ENCOUNTER → 2020-11-24 | Outpatient (CLI) | payer BC, OTHER ==
--- NOTE | 2020-11-24 15:59 | XR ---
EXAMINATION TYPE: XR chest 2V DATE OF EXAM: 11/24/2020 COMPARISON: 05/01/2017 INDICATION: Short of breath TECHNIQUE: Frontal and lateral views of the chest are obtained. FINDINGS: The heart size is normal. The pulmonary vasculature is normal. Mild bibasilar infiltrates are present. IMPRESSION: 1. No acute pulmonary process.
== END | disposition home or self-care (01) ==
LOC: RADXRYALE 15:28
PROVIDERS: ATTEND Physician Assistant Medical
DX: R06.02 Shortness of breath (principal)
CPT/HCPCS: 71046

== ENCOUNTER 2021-10-19 12:26 | Outpatient (CLI) | payer BC, OTHER ==
[2021-10-19 13:30] LABS: Appearance,Urine Clear (Clear); Bilirubin,Urine Negative (Negative); Blood,Urine Negative (Negative); Color,Urine Yellow; Glucose,Urine (UA) Negative (Negative); Ketones,Urine Negative (Negative); Leukocyte Esterase,Urine Trace (Negative); Nitrite,Urine Negative (Negative); PH, Urine 6.5 (5.0-8.0); Protein,Urine Negative (Negative); Specific Gravity,Urine 1.009 (1.001-1.035); Urobilinogen,Urine <2.0 mg/dL (<2.0); WBC,Urine 1 /hpf (0-5)
[2021-10-19 13:32] LABS: Amphetamine Screen,Urine Not Detected (NotDetected); Barbiturate Screen,Urine Not Detected (NotDetected); Benzodiazepines Screen,Urine Not Detected (NotDetected); Cocaine Screen,Urine Not Detected (NotDetected); Methadone Screen, Urine Not Detected (NotDetected); Opiate Screen,Urine Not Detected (NotDetected); Oxycodone Screen, Urine Not Detected (NotDetected); Phencyclidine Screen,Urine Not Detected (NotDetected); Tricyclic Antidepressant,Urine Not Detected (NotDetected); Urn Cannabinoid Scrn Not Detected (NotDetected)
[2021-10-19 14:06] VITALS: BP 123/70; PULSE 105; RESP 16; TEMP 97.8
--- NOTE | 2021-10-29 11:52 | P.MSEPDOC ---
Presenting Problems - Arrival Data Date of Arrival on Unit: 10/19/21 Time of Arrival on Unit: 12:26 Mode of Transport: Ambulatory - Complaint OB-Reason for Admission/Chief Complaint: Rule Out PROM, Pain Comment: back and abd pain, leaking? DOM Medical History - Information : 5 Para: 2 Term: 2 : 0 Abortions: Spontaneous or Elective: 2 Number of Living Children: 2 - Gestational Age Gestational Age by TED (wks/days): 35 Weeks and 6 Days - History Comment: sees Digital Associate for care Review of Systems - Review of Systems Constitutional: No problems Breast: No problems ENT: No problems Cardiovascular: No problems Respiratory: No problems Gastrointestinal: No problems Genitourinary: No problems Musculoskeletal: No problems Neurological: No problems Skin: No problems Vital Signs - Temperature Temperature: 97.8 F Temperature Source: Temporal Artery Scan - Pulse Right Pulse Rate: 105 Pulse Assessment Method: Automatic Cuff - Respirations Respiratory Rate: 16 Oxygen Delivery Method: Room Air O2 Sat by Pulse Oximetry: 98 - Blood Pressure Right Arm Sitting Blood Pressure: 123/70 Blood Pressure Mean: 87 Blood Pressure Source: Automatic Cuff Medical Screen Scoring - Cervical Exam Dilation (cm): 1 Effacement (%): 0 Station: -3 Membranes: Intact - Uterine Contractions Frequency From (mins): 3 Frequency To (mins): 5 Duration From (seconds): 60 Duration To (seconds): 60 Intensity: Mild Resting: Soft to palpation - Assessment - Baby A Baseline FHR: 150 Heart Rate - NICHD Category: Category I (Normal) NST: Reactive Physician Notification - Physician Notified Physician Notified Date: 10/19/21 Physician Notified Time: 13:38 Physician: Jesse Olivares Order Received: Yes - Notification Comment Comment: discharge with instruction and follow up with change of address clerk Maternal Triage Index - Prompt/Priority 3 Prompt Priority 3: Yes Criteria Met for Priority 3: 35 6/7 , mild irregular ctx, 1cm and thick Disposition - Disposition OB Disposition: Triage, Discharge to home, Written follow up instructions reviewed Discharge Date: 10/19/21 Discharge Time: 13:50 I agree with the RN Medical Screening Exam: Yes Physician's MSE Comment: I have neither seen nor examined the patient. Case reviewed; plan agreed upon as documented in EMR&OBIX.: Yes Diagnosis: RELATED CONDITIONS, UNSPECIFIED, THIRD TRIMESTER
== END 2021-10-19 13:50 ==
LOC: FBPOP 12:26
PROVIDERS: ATTEND Obstetrics & Gynecology
DX: O26.893 Other specified pregnancy related conditions, third trimester (principal); M54.9 Dorsalgia, unspecified; R10.9 Unspecified abdominal pain; Z3A.35 35 weeks gestation of pregnancy
CPT/HCPCS: 59025; 80306; 81001; 84112; 99213

== ENCOUNTER 2022-12-15 | Emergency (ER) | payer BC, OTHER ==
[2022-12-15 00:18] VITALS: BP 138/94; PULSE 72; RESP 16; TEMP 98
--- NOTE | 2022-12-15 00:37 | ED ---
Abdominal Pain HPI - General Chief Complaint: Abdominal Pain Stated Complaint: ABD Pain, 9 Weeks Preg Time Seen by Provider: 12/15/22 00:22 Source: patient Mode of arrival: ambulatory Limitations: no limitations - History of Present Illness Initial Comments: Patient is a pleasant 27-year-old female presenting to the emergency room with complaints of intermittent but persistent abdominal pain. She reports that her abdominal pain started a few weeks ago and initially was generalized but now has localized to the right upper and right lower quadrant. She reports that the localization has been ongoing for approximately 3 days. She reports nausea without vomiting. She states that she is not typically is nauseated and she currently is with her previous pregnancies. She is currently 9 weeks . She is G 6 A 2 P 3. She denies any pelvic cramping or back pain. She denies any vaginal discharge, dysuria, urinary frequency, chest pain, shortness of breath, headache, dizziness, fevers or chills. In addition to being with a past medical history significant for asthma and hypothyroidism. - Related Data Home Medications Medication Instructions Recorded Confirmed Levothyroxine Sodium [Synthroid] 200 mcg PO DAILY 08/06/18 10/19/21 Allergies Allergy/AdvReac Type Severity Reaction Status Date / Time No Known Allergies Allergy Verified 12/15/22 00:18 Review of Systems ROS Statement: Those systems with pertinent positive or pertinent negative responses have been documented in the HPI. ROS Other: All systems not noted in ROS Statement are negative. Past Medical History Past Medical History: Asthma, Thyroid Disorder Additional Past Medical History / Comment(s): Obstetric history: G6 A2 P3. A+, abs neg, Rub Imm, RPR NR, Hep B neg, GBS neg, History of Any Multi-Drug Resistant Organisms: None Reported Past Surgical History: Adenoidectomy, Tonsillectomy Past Anesthesia/Blood Transfusion Reactions: No Reported Reaction Past Psychological History: Anxiety, Depression Smoking Status: Never smoker Past Alcohol Use History: None Reported Past Drug Use History: None Reported - Past Family History Mother Family Medical History: Asthma, Thyroid Disorder General Exam - General Exam Comments Initial Comments: GENERAL: No acute distress, well developed, well nourished. Obese. HEENT: Normocephalic, atraumatic. Pupils equal, round, reactive to light. Moist mucous membranes. LUNGS: No respiratory distress. Clear to auscultation, no adventitious sounds, no use of accessory muscles. HEART: Regular rate and rhythm without murmur, rub, or gallop. ABDOMEN: Normal bowel sounds. Soft, non-tender, non-distended. BACK: Normal inspection. EXTREMITIES: No edema. No tenderness. Moves all extremities. NEUROLOGIC: Alert & oriented x 3. CN II-XII grossly intact. PSYCHIATRIC: Normal affect and behavior. DERMATOLOGIC: Skin intact, without rashes or lesions noted. Limitations: no limitations Course Vital Signs 12/15/22 00:15 Temperature 98.0 F Pulse Rate 72 Respiratory 16 Rate Blood Pressure 138/94 O2 Sat by Pulse 98 Oximetry Medical Decision Making - Medical Decision Making Was pt. sent in by a medical professional or institution (, PA, SPRINKLER DRIVER, urgent ca re, hospital, or long-term...) When possible be specific @ -No Did you speak to anyone other than the patient for history (EMS, parent, family, police, friend...)? What history was obtained from this source @ -No Did you review nursing and triage notes (agree or disagree)? Why? @ -I reviewed and agree with nursing and triage notes Were old charts reviewed (outside hosp., previous admission, EMS record, old EKG, old radiological studies, urgent care reports/EKG's, long-term records)? Report findings @ -No old charts were reviewed Differential Diagnosis (chest pain, altered mental status, abdominal pain women, abdominal pain men, vaginal bleeding, weakness, fever, dyspnea, syncope, headache, dizziness, GI bleed, back pain, seizure, CVA, palpatations, mental health, musculoskeletal)? @ -Differential Abdominal Pain Women: Appendicitis, Cholecystitis, diverticulosis, ischemic bowel, pancreatitis, hepatitis, UTI, gastroenteritis, AAA, incarcerated hernia, bowel obstruction, constipation, inflammatory bowel, hepatitis, peptic ulcer disease, splenic infarction, perforated viscus, vulvitis, ovarian torsion, PID, kidney stone, placenta abruption, this is not meant to be an all-inclusive list EKG interpreted by me (3pts min.). @ -None done X-rays interpreted by me (1pt min.). @ -None done CT interpreted by me (1pt min.). @ -None done U/S (1pt. min.). @ -Ultrasound of the gallbladder and ultrasound OB not interpreted by me. Report per radiologist: Intrauterine noted but at 7 weeks 3 days gestation instead of stated 9 weeks with no heart tones concerning for demise. Ultrasound of gallbladder negative for acute findings. What testing was considered but not performed or refused? (CT, X-rays, U/S, labs)? Why? @ -None What meds were considered but not given or refused? Why? @ -None Did you discuss the management of the patient with other professionals (professionals i.e. DrPanchito, PA, SPRINKLER DRIVER, lab, RT, psych nurse, health and social care teacher, cipher expert, te acher, defence force senior officer, corrections caseworker)? Give summary @ -No Was smoking cessation discussed for >3mins.? @ -No Was critical care preformed (if so, how long)? @ -No Were there social determinants of health that impacted care today? How? (Homelessness, low income, unemployed, alcoholism, drug addiction, transportation, low edu. Level, literacy, decrease access to med. care, intermediate, rehab)? @ -No Was there de-escalation of care discussed even if they declined (Discuss DNR or withdrawal of care, Hospice)? DNR status @ -No What co-morbidities impacted this encounter? (DM, HTN, Smoking, COPD, CAD, Cancer, CVA, ARF, Chemo, Hep., AIDS, mental health diagnosis, sleep apnea, morbid obesity)? @ -Currently . Was patient admitted / discharged? Hospital course, mention meds given and route, prescriptions, significant lab abnormalities, going to OR and other pertinent info. @ -27-year-old female presenting to the emergency room with complai nts of intermittent right-sided abdominal pain with increased nausea without vomiting. Will begin workup for right-sided abdominal pain along with abdominal pain and . Will obtain ultrasound gallbladder and ultrasound OB, serum hCG level, CBC, CMP, urinalysis, amylase, lipase and AB Rh typing. Ultrasound uterus consistent with demise likely the cause of abdominal pain. Ultrasound gallbladder negative. CBC unremarkable, CMP sodium low at 136 carbon dioxide low at 19 bilirubin slightly elevated 1.4 normal liver enzymes, alkaline phosphate normal, amylase and lipase normal, renal function normal. Will discontinue order for urinalysis and serum beta levels in the setting of intrauterine identified with concern for demise. Findings discussed with patient. Encouraged establishing with [employer] [facility]PER[facility] for repeat ultrasound to confirm demise. Discussed spontaneous . Advised return parameters to the emergency room at length. Questions and concerns answered. Will discharge home in stable condition with OB follow-up for demise of current . Undiagnosed new problem with uncertain prognosis? @ -No Drug Therapy requiring intensive monitoring for toxicity (Heparin, Nitro, Insulin, Cardizem)? @ -No Were any procedures done? @ -No Diagnosis/symptom? @ -Abdominal pain Acute, or Chronic, or Acute on Chronic? @ -Acute Uncomplicated (without systemic symptoms) or Complicated (systemic symptoms)? @ -Uncomplicated Side effects of treatment? @ -No Exacerbation, Progression, or Severe Exacerbation? @ -No Poses a threat to life or bodily function? How? (Chest pain, [place], DC, pneumonia, PE, COPD, DKA, ARF, appy, cholecystitis, CVA, Diverticulitis, Homicidal, Suicidal, threat to staff... and all critical care pts) @ -No Diagnosis/symptom? @ - demise and Acute, or Chronic, or Acute on Chronic? @ -Acute Uncomplicated (without systemic symptoms) or Complicated (systemic symptoms)? @ -Uncomplicated Side effects of treatment? @ -none Exacerbation, Progression, or Severe Exacerbation] @ -no Poses a threat to life or bodily function? @ -no. Case discussed with Dr. Ochoa. - Lab Data Result diagrams: 12/15/22 02:01 12/15/22 02:01 Lab Results 12/15/22 12/15/22 Range/Units 02:01 02:01 WBC 8.0 (3.8-10.6) k/uL RBC 4.96 (3.80-5.40) m/uL Hgb 13.3 (11.4-16.0) gm/dL Hct 41.1 (34.0-46.0) % MCV 83.0 (80.0-100.0) fL MCH 26.8 (25.0-35.0) pg MCHC 32.3 (31.0-37.0) g/dL RDW 13.1 (11.5-15.5) % Plt Count 211 (150-450) k/uL MPV 8.8 Neutrophils % 60 % Lymphocytes % 34 % Monocytes % 4 % Eosinophils % 1 % Basophils % 1 % Neutrophils # 4.8 (1.3-7.7) k/uL Lymphocytes # 2.7 (1.0-4.8) k/uL Monocytes # 0.3 (0-1.0) k/uL Eosinophils # 0.1 (0-0.7) k/uL Basophils # 0.0 (0-0.2) k/uL Sodium 136 L (137-145) mmol/L Potassium 3.7 (3.5-5.1) mmol/L Chloride 104 (98-107) mmol/L Carbon Dioxide 19 L (22-30) mmol/L Anion Gap 13 mmol/L BUN 11 (7-17) mg/dL Creatinine 0.52 (0.52-1.04) mg/dL Est GFR (CKD-EPI)AfAm >90 (>60 ml/min/1.73 sqM) Est GFR (CKD-EPI)NonAf >90 (>60 ml/min/1.73 sqM) Glucose 90 (74-99) mg/dL Calcium 9.4 (8.4-10.2) mg/dL Total Bilirubin 1.4 H (0.2-1.3) mg/dL AST 18 (14-36) U/L ALT 12 (4-34) U/L Alkaline Phosphatase 69 (38-126) U/L Total Protein 7.2 (6.3-8.2) g/dL Albumin 4.4 (3.5-5.0) g/dL Amylase 48 (30-110) U/L Lipase 136 (23-300) U/L - Radiology Data Radiology results: report reviewed, image reviewed Disposition Clinical Impression: Abdominal pain, demise, Threatened Disposition: HOME SELF-CARE Condition: Stable Instructions (If sedation given, give patient instructions): Threatened Miscarriage (ED), Abdominal Pain (ED) Additional Instructions: Please follow-up with [facility] for repeat ultrasound for further evaluation of progression and possible demise. Take Tylenol as needed for pain. Please return to the Emergency Department if symptoms worsen or any other concerns. Is patient prescribed a controlled substance at d/c from ED?: No Referrals: Perez Cason DO [Primary Care Provider] - 1-2 days Time of Disposition: 02:39
--- NOTE | 2022-12-15 01:48 | US ---
EXAM: US Abdomen Limited, Gallbladder CLINICAL HISTORY: US TECHNIQUE: Real-time ultrasound of the right upper quadrant with image documentation. COMPARISON: No relevant prior studies available. FINDINGS: Liver: The liver measures 15.5 cm with normal echotexture. No focal liver lesion is seen. Gallbladder: Unremarkable. No gallstones. Common bile duct: The common bile duct is nondilated measuring 2 mm. Pancreas: The visualized portion of the pancreas is unremarkable. Right kidney: The right kidney measures 11 x 4.3 x 4.5 cm with normal appearance. No hydronephrosis. Inferior vena cava: The IVC is unremarkable. IMPRESSION: No acute findings in the right upper quadrant.
--- NOTE | 2022-12-15 01:53 | US ---
EXAM: US , Transvaginal CLINICAL HISTORY: US Reason: pain TECHNIQUE: Real-time transvaginal obstetrical ultrasound of the maternal pelvis and a first trimester with image documentation. Transvaginal imaging was used for better evaluation of the fetus and adnexa. COMPARISON: No relevant prior studies available. FINDINGS: Gestation: There is a pole with crown-rump length measuring 1.34 cm consistent with 7 weeks 4 days gestation. No heart tones are detected which is consistent with demise. There is a single intrauterine gestational sac with mean sac diameter 2.28 cm consistent with 6 weeks 6 days gestation. There is a subchorionic hemorrhage on the right. Uterus/cervix: The uterus measures 9.8 x 6.3 x 7.4 cm. No myometrial mass. Ovaries: The right ovary measures 3 x 2.1 x 2.2 cm. The left ovary measures 2.6 x 3.2 x 1.4 cm. No mass. Free fluid: No free fluid. IMPRESSION: Single intrauterine gestational sac. There is a pole with crown- rump length measuring 1.34 cm consistent with 7 weeks 4 days gestation. No heart tones are detected which is consistent with demise. <MYCVCSECTION> Communications: 12/15/22 02:00 Call Doctor Regarding Above results, called Dr. Ochoa on 12/15 02:00 (-04:00)
[2022-12-15 02:09] LABS: Basophils % (A) 1 %; Eosinophils # (A) 0.1 k/uL (0-0.7); Eosinophils % (A) 1 %; HCT 41.1 % (34.0-46.0); HGB 13.3 gm/dL (11.4-16.0); Lymphocytes # (A) 2.7 k/uL (1.0-4.8); Lymphocytes % (A) 34 %; MCH 26.8 pg (25.0-35.0); MCHC 32.3 g/dL (31.0-37.0); Mean Platelet Volume 8.8; Monocytes # (A) 0.3 k/uL (0-1.0); Monocytes % (A) 4 %; Neutrophils # (A) 4.8 k/uL (1.3-7.7); Neutrophils % (A) 60 %; Platelet Count 211 k/uL (150-450); RBC 4.96 m/uL (3.80-5.40); RDW 13.1 % (11.5-15.5)
[2022-12-15 02:18] LABS: Potassium 3.7 mmol/L (3.5-5.1)
[2022-12-15 02:19] LABS: ALT 12 U/L (4-34); AST 18 U/L (14-36); African American GFR (CKD) >90 (>60 ml/min/1.73 sqM); Albumin 4.4 g/dL (3.5-5.0); Alkaline Phosphatase 69 U/L (38-126); Amylase 48 U/L (30-110); Anion Gap 13 mmol/L; Blood Urea Nitrogen 11 mg/dL (7-17); Calcium 9.4 mg/dL (8.4-10.2); Carbon Dioxide 19 mmol/L (22-30); Chloride 104 mmol/L (98-107); Glucose 90 mg/dL (74-99); Lipase 136 U/L (23-300); Non-African American GFR(CKD) >90 (>60 ml/min/1.73 sqM); Sodium 136 mmol/L (137-145); Total Bilirubin 1.4 mg/dL (0.2-1.3); Total Protein 7.2 g/dL (6.3-8.2)
[2022-12-15 03:14] LABS: HCG,Quantitative Serum 57683.5 mIU/mL
== END 2022-12-15 02:56 | disposition home or self-care (01) ==
LOC: EC
DX: O36.4XX0 Maternal care for intrauterine death, not applicable or unspecified (principal); O20.0 Threatened abortion; O99.511 Diseases of the respiratory system complicating pregnancy, first trimester; J45.909 Unspecified asthma, uncomplicated; O99.281 Endocrine, nutritional and metabolic diseases complicating pregnancy, first trimester; E07.9 Disorder of thyroid, unspecified; Z86.59 Personal history of other mental and behavioral disorders; Z79.890 Hormone replacement therapy; Z3A.09 9 weeks gestation of pregnancy
CPT/HCPCS: 36415; 76705; 76801; 76817; 80053; 82150; 83690; 84702; 85025; 86900; 86901; 99284

== ENCOUNTER → 2022-12-16 | Outpatient (CLI) | payer BC, OTHER | END | disposition home or self-care (01) | LOC: LABWHC1 10:21 | PROVIDERS: ATTEND Obstetrics & Gynecology | DX: O02.1 Missed abortion (principal) | CPT/HCPCS: 36415; 84702 ==

== ENCOUNTER → 2022-12-20 | Outpatient (CLI) | payer BC, OTHER ==
[2022-12-20 15:58] LABS: Basophils # (A) 0.04 X 10*3/uL (0.00-0.10); Basophils % (A) 0.7 %; Eosinophils # (A) 0.09 X 10*3/uL (0.04-0.35); Eosinophils % (A) 1.6 %; HGB 13.2 g/dL (12.0-15.0); Immature Grans, Automated 0.2 %; Lymphocytes # (A) 1.79 X 10*3/uL (0.90-5.00); MCH 26.5 pg (27.0-32.0); MCHC 30.7 g/dL (32.0-37.0); MCV 86.2 fL (80.0-97.0); Mean Platelet Volume 11.5 fL (9.5-12.2); Monocytes # (A) 0.24 X 10*3/uL (0.20-1.00); Monocytes % (A) 4.2 %; NRBC Per 100 WBC 0 /100 WBCS (0.0-0.0); Neutrophils % (A) 62.3 %; Platelet Count 201 X 10*3/uL (140-440); RBC 4.99 X 10*6/uL (4.10-5.20); RDW 13.4 % (11.5-14.5); WBC 5.77 X 10*3/uL (4.50-10.00)
== END | disposition home or self-care (01) ==
LOC: LABPAT 10:05
PROVIDERS: ATTEND Obstetrics & Gynecology
DX: Z01.818 Encounter for other preprocedural examination (principal); O02.1 Missed abortion; Z3A.00 Weeks of gestation of pregnancy not specified
CPT/HCPCS: 85025

== ENCOUNTER → 2022-12-20 | Outpatient (CLI) | payer BC, OTHER ==
[2022-12-20 15:50] LABS: T4, Free (Free Thyroxine) 1.31 ng/dL (0.800-1.800)
== END | disposition home or self-care (01) ==
LOC: LABWHC1 10:07
PROVIDERS: ATTEND Internal Medicine
DX: E03.9 Hypothyroidism, unspecified (principal); E55.9 Vitamin D deficiency, unspecified
CPT/HCPCS: 36415; 82306; 84439; 84443